=== PATIENT | male | born 1955 | race Caucasian/White ===

== ENCOUNTER → 2016-06-28 | Outpatient (CLI) | payer OTHER ==
[~2016-06-28] VITALS: Ht 179.1 cm; Wt 97.5 kg
[~2016-06-28] MED LIST: ADULT LOW DOSE81 M1; ATORVASTATIN 40 MG T; BETAPACE 120 M120 MG PO; CARVEDILOL3.125 MG; CARVEDILOL6.25 MG PO; CLOPIDOGREL75 MG; DAILY VALUE1 EACH PO; ELIQUIS5 MG PO; GLUCOSAMINE1000 MG PO; KENALOG,ARISTOC80 GM; KRILL OIL 1,001 EACH; LIPITOR40 MG PO; OPTIFLEX-C400 MG PO; PANTOPRAZOLE SO40 MG; PROAIR HFA8.5 GM IH; PROTONIX40 MG PO; SOTALOL80 MG PO; VITAMIN D31000 UNIT PO
== END | disposition home or self-care (01) ==
LOC: AMB 04-05 15:00
DX: K74.60 Unspecified cirrhosis of liver (principal); B18.2 Chronic viral hepatitis C; K29.90 Gastroduodenitis, unspecified, without bleeding; Z09 Encounter for follow-up examination after completed treatment for conditions other than malignant neoplasm; D12.3 Benign neoplasm of transverse colon; D12.5 Benign neoplasm of sigmoid colon; K64.9 Unspecified hemorrhoids; Z86.010 Personal history of colon polyps; G47.30 Sleep apnea, unspecified; M19.90 Unspecified osteoarthritis, unspecified site; I25.2 Old myocardial infarction
CPT/HCPCS: 88305; 88342 TC; B4087; J2250; J3010